=== PATIENT | male | born 1955 ===

== ENCOUNTER 2019-07-26 17:34 | Observation (INO) | payer OTHER, SELFPAY ==
[2019-07-25 10:30] LABS: Basophils % 0.4 %; Eosinophils # 0.4 10^3/uL (0.0-0.8); Eosinophils % 5.8 %; Hematocrit 42.7 % (42.0-52.0); Hemoglobin 14.5 g/dL (11.7-16.6); Lymphocytes # 1.8 10^3/uL (0.8-4.8); Lymphocytes % 25.8 %; Mean Corpuscular Hemoglobin 31.3 pg (28.0-34.0); Mean Platelet Volume 11.9 fL (7.4-10.4); Monocytes # 0.6 10^3/uL (0.2-0.9); Monocytes % 9.2 %; Neutrophils % 58.7 %; Nucleated Red Blood Cells % 0 %; Platelet Count 232 10^3/cmm (130-400); Red Blood Count 4.64 10^6/uL (4.1-5.3); Red Cell Distribution Width 12.5 % (12.1-15.1); White Blood Count 6.9 10^3/uL (4.0-10.0)
[2019-07-25 10:37] LABS: INR 0.92 (0.8-1.2)
[2019-07-25 10:45] LABS: Blood Urea Nitrogen 17 mg/dL (8-23); Calcium 9.9 mg/Dl (8.8-10.2); Carbon Dioxide 26 mmol/L (22-29); Chloride 97 mmol/L (98-107); Glomerular Filtration Rate 56.1 mL/min (90-130); Glucose 191 mg/dL (74-106); Osmolality Calculated 282 mOsm/kg (285-295); Sodium 135 mmol/L (136-145)
--- NOTE | 2019-07-26 07:30 | XACV_ITS ---
Ht: 178 cm Wt: 113 kg BSA: 2.41 m2 Gender: Male : 1955 Any Known Allergies: No known allergies Exam Priority: Routine Procedure(s): Procedure Description: Diagnostic procedure Procedure Description: Left Heart Catheterization Procedure Description: Coronary Angiography Diagnostic Cath Status: Elective Diagnostic Findings No significant disease noted in the Left Main, LAD, Circumflex, or RCA coronary arteries. Coronary angiography shows left dominance. PCI Indication: Other Conclusions No significant disease noted in the Left Main, LAD, Circumflex, or RCA coronary arteries. Indication: Abnormal stress test with chest pain. Recommendations Continue current medical management and risk factor modification. Diagnostic RX Recommendation: none Pressures Phase:Rest AO : 75 mmHg / 58 mmHg ( 67 mmHg ) @ 10:59:00 AM 64 mmHg / 49 mmHg ( 56 mmHg ) @ 10:59:00 AM 69 mmHg / 55 mmHg ( 63 mmHg ) @ 11:07:00 AM Clinical Evaluation EBL: 5mL-10mL Procedural Details Correct Patient: Yes; Correct Procedure: Yes; Correct Site: Yes; Correct Patient Position: Yes; Correct Supplies: Yes; Dried Flammable Prep: N/A; Blood Products Available: N/A;. Procedure Consent Obtained. Equipment: 6F - Radial. Cardiac Cath Pack. ACIST Manifold Kit Model BT 2000. Heparinized Saline (2 units/mL), 1000 mL bag. Pre-Procedure Time Out. Identified patient by full name and date of as verbalized by the patient/guarantor. Does the consent match the physician's order: Yes. Accurate & Complete Informed Consent: Yes. Inpatient/Outpatient History & Physical on Chart: Yes. If H&P is completed, is and addenduem needed: Yes; If yes, is the addendum complete: N/A. Visualize and Verify Site with Patient/Guarantor: N/A. Relevant Radiology Images available: N/A. Pre-op teaching completed and patient verbalized understanding. The risks, benefits, and alternatives of sedation and/or procedure were discussed by physician. The patient agrees to continue. Procedure started. Correct patient, site and procedure confirmed by cath team. PERRLA. Strong, equal hand nephrologist bilaterally. Lungs clear x 5 lobes. IV Site on Arrival: 20 gauge in the right anticubital. Pre Procedural Pulses: bilateral dorsalis pedis was 1+. Pre Procedural Pulses: bilateral posterior tibial was 1+. Pre Procedural Pulses: right radial was 2+. Oxygen started at 2liters/min via nasal canula. right radial was prepped with chloroprep then draped in the usual sterile fashion. Physician notified. Baseline sample Acquired. HR: 74 BPM. [facility] Clinical Fraility Score: 3: Managing Well. Social Professionals Indications: Suspected CAD. Chest Pain Symptom Assessment: Atypical Angina. Cardiovascular Instability: No. Current diagnosis: Stable angina. Physician arrived. Physician scrubbed in. Immediate Pre-Procedure Time Out. Lidocaine 1% infiltrated to the right groin. Current Diagnosis : Stable angina. Arterial access obtained. A 6 belarusian RBL catheter in over wire. Multiple views taken of left coronary artery. Catheter out. A CRD 5F JR4 Diagnostic Catheter was advanced over the wire and used for Right coronary angiography. Multiple views taken of right coronary artery. Physician scrubbed out. Physician review of cine films. A TR Band was successful obtaining hemostatsis at the Right Radial artery insertion site. TR band placed. Hemostasis obtained. Post Procedure: Pulses reassessed and unchanged. PERRLA. Strong, equal hand nephrologist bilaterally. No VTE prophylaxis required. Contrast type used: Visipaque 320 mgI/mL, 500 mL bottle. Post-op diagnosis: Normal Coronaries with endothelial disfunction. Complications: none. Estimated blood loss: 5mL-10mL. Procedure completed. Medication's Wasted: Lidocaine 1% =18mL , Nitro = 49.75mL, Heparin = 1000 units. Total IV fluids: 59.3 mL. Patient transferred by bed to 1st floor. Vital chart was stopped. Site: Right Radial artery Sheath Size: 6 Fr Hemostasis Method: TR Band Hemostasis Success: Successful Procedure Medications Start: 4:51 PM Stop: 4:51 PM Medication: Versed Amount: 2 mg Route: I.V. Start: 4:51 PM Stop: 4:51 PM Medication: Fentanyl Amount: 50 mcg Route: I.V. Start: 4:53 PM Stop: 4:53 PM Medication: Nitrogylcerin Amount: 50 mcg Start: 4:56 PM Stop: 4:56 PM Medication: Versed Amount: 2 mg Route: I.V. Start: 4:56 PM Stop: 4:56 PM Medication: Nitrogylcerin Amount: 200 mcg Route: I.A. Start: 4:58 PM Stop: 4:58 PM Medication: Heparin Amount: 5000 units Start: 5:05 PM Stop: 5:05 PM Medication: Fentanyl Amount: 25 mcg Route: I.V. Start: 5:08 PM Stop: 5:08 PM Medication: Versed Amount: 1 mg Route: I.V. Start: 4:56 PM Stop: 4:56 PM Medication: Fentanyl Amount: 25 mcg Route: I.V. I, the attending physician, have reviewed and verified all procedure medications. Yes, all medications given per verbal order History/Risk Factors Hypertension: Yes Dyslipidemia: Yes Peripheral Arterial Disease (PAD): No Myocardial Infarction (MT): No Obesity: Yes Renal Disease: No Tobacco Use: Former Prior Interventions PCI: No CABG: No Valve Surgery: No Report Signatures Finalized by:Tahira Chambers MD on 08/09/2019 5:47:01 PM
[2019-07-26 09:35] VITALS: BP 149/84; PULSE 80; RESP 18; TEMP 36.7; O2SAT 97; BMI 35.9
[2019-07-26] MEDS: sodium chloride 0.9% 1,000 ML 50 ML IV (10:07)
[2019-07-26] MEDS: diphenhydrAMINE 50 mg Capsule PO (10:07)
--- NOTE | 2019-07-26 17:32 | PM.SDS ---
Short Stay Summary Providers Date of Admit/Discharge: 07/26/19 Attending Provider: Tahira Chambers Primary Care Provider: Darvin Orozco MD Chief Complaint: Abnormal Nuclear Stress test HPI History of Present Illness Lam Almonte is a 63 year old male past medical history significant for chest pressure unexplained shortness of breath history of uncontrolled hypertension history of hypercholesterolemia for worsening of shortness of breath and abnormal stress test underwent left heart cath which showed no significant obstructive disease but endothelial dysfunction and sluggish flow through the LAD. Review of Systems Const: Denies: fever, chills or body aches Eyes: Denies: change in vision Card: Reports: chest pain Resp: Reports: shortness of breath GI: Denies: abdominal pain, nausea or vomiting Neuro: Denies: headache, numbness in extremities or weakness in extremities Endo: Denies: excessive urination Home Meds/Allergies Home Medications and Allergies Home Medications Medication Instructions Recorded Confirmed Type aspirin [Aspirin Low Dose] 81 mg PO DAILY 07/26/19 07/26/19 History atorvastatin 10 mg PO DAILY 07/26/19 07/26/19 History isosorbide mononitrate 30 mg PO DAILY 07/26/19 07/26/19 History lisinopril 20 mg PO DAILY 07/26/19 07/26/19 History naproxen 500 mg PO PRN 07/26/19 07/26/19 History sildenafil 100 mg PO 07/26/19 History Allergies Allergy/AdvReac Type Severity Reaction Status Date / Time No Known Allergies Allergy Verified 07/25/19 13:12 PFSH Acute PFSH: Statuses (acute, chronic, etc) shown below reflect problem list status as previously entered and may not be historically accurate Medical History (Updated 07/26/19 @ 17:45 by Tahira Chambers MD) Abnormal nuclear stress test (Acute) HTN (hypertension) with goal to be determined (Acute) Shortness of breath (Acute) Family History Sister Cancer Social History Smoking and tobacco status: former smoker Vitals/I&O/Wt Last Vital Signs Temp 98.1 F 07/26/19 09:35 Pulse 80 07/26/19 09:35 Resp 18 07/26/19 09:35 BP 149/84 07/26/19 09:35 Pulse Ox 97 07/26/19 09:35 Weight last 48 hrs Weight 250 lb Physical Exam Narrative: EXAM NARRATIVE: GENERAL: Patient is alert, awake and oriented x3. NECK: No jugular vein distension. HEENT: No cyanosis. No icterus. No pallor. HEART: Regular S1 and S2. No murmur, rub or gallop. LUNGS: Clear to auscultate bilaterally. ABDOMEN: Soft, nontender and nondistended. Positive bowel sounds. No guarding, rebound or tenderness. CENTRAL NERVOUS SYSTEM: Grossly nonfocal. EXTREMITIES: Lower extremities without edema bilaterally. Hospital Course Admission Diagnoses: Shortness of breath Hypertension Hyperlipidemia Discharge Summary: Patient underwent coronary angiogram which showed no significant obstruction of the coronary artery. Patient was noted to have endothelial dysfunction. Advised lifestyle modification and isosorbide mononitrate. SSS Data Data Completed and Pending: Completed Studies During Hospitalization Category Date Time Status CONFERENCE SERVICES MANAGER request for service Routin e Exams 07/26/19 07:30 Completed Diagnoses at Discharge Discharge Diagnosis (1) Abnormal nuclear stress test: Status: Acute (2) Shortness of breath: Status: Acute (3) HTN (hypertension) with goal to be determined: Status: Acute Discharge Plan Discharge Patient Disposition: Home, Self-Care Condition: Stable Prescriptions: No Action atorvastatin 10 mg tablet 10 mg PO DAILY RF: 0 isosorbide mononitrate 30 mg tablet extended release 24 hr 30 mg PO DAILY RF: 0 Aspirin Low Dose 81 mg Tablet,Delayed Release (Dr/Ec) 81 mg PO DAILY RF: 0 sildenafil 100 mg tablet 100 mg PO RF: 0 lisinopril 10 mg tablet 20 mg PO DAILY RF: 0 naproxen 500 mg tablet 500 mg PO PRN RF: 0 Discharge Diet: Low Cholesterol Discharge Activity: Resume usual activity Activity Restrictions/Additional Instructions: No lifting with right hand for next 2 days otherwise no significant restriction. Advised not to take isosorbide mononitrate within 24 hours of taking sildenafil or vice versa because it can lower your blood pressure significantly and has been reported. Attestations Medical Necessity Statement*: Patient can be discharged home once complete bedrest. I am not expecting stay to cross more than a few hours after the test Time Spent in Patient Care*: greater than 30 min Quality Metrics Clinical Quality Measures: During this hospital stay, did patient experience: None Coding Level of Care Code Acute Senior Project Manager for Chg Fwd Diagnoses Abnormal nuclear stress test R94.39 Shortness of breath R06.02 HTN (hypertension) with goal to be determined I10
--- NOTE | 2019-07-26 20:21 | PC.NURSE ---
TB band removed from right wrist and dressing applied. Patient given post-cath activity restrictions and care education and verbalized understanding. Site WNL. VSS. Will continue to monitor.
[2019-07-26 20:25] VITALS: RESP 18; TEMP 36.7; O2SAT 97
--- NOTE | 2019-07-26 20:54 | PC.NURSE ---
Patient was given discharge instructions and verbalized understanding. Patient signed discharge.
== END 2019-07-26 21:00 | disposition home or self-care (01) ==
LOC: CSU 17:34
PROVIDERS: Admitting Provider Internal Medicine Cardiovascular Disease; Family Provider Internal Medicine; PCP Internal Medicine; Visit Provider Internal Medicine Cardiovascular Disease
DX: R94.39 Abnormal result of other cardiovascular function study (principal); R06.02 Shortness of breath; I10 Essential (primary) hypertension; Z79.82 Long term (current) use of aspirin; Z79.1 Long term (current) use of non-steroidal anti-inflammatories (NSAID); Z87.891 Personal history of nicotine dependence; E78.5 Hyperlipidemia, unspecified
CPT/HCPCS: 12345; 36415; 80048; 85025; 85610; 93454; 96365; C1769; C1887; C1894; G0378; J1644; J2001; J2250; J3010; J3490; J7030; Q9967

== ENCOUNTER → 2020-07-08 16:49 | Outpatient (BNVA) | payer OTHER, SELFPAY | PROVIDERS: Family Provider Internal Medicine; PCP Internal Medicine; Visit Provider Internal Medicine | DX: M19.09 Primary osteoarthritis, other specified site (principal); I10 Essential (primary) hypertension; E78.5 Hyperlipidemia, unspecified | CPT/HCPCS: 80053; 80061; 84443; 85025 ==

== ENCOUNTER → 2021-07-14 15:18 | Outpatient (BNVA) | payer OTHER, SELFPAY | PROVIDERS: Family Provider Internal Medicine; PCP Internal Medicine; Visit Provider Internal Medicine | DX: E78.5 Hyperlipidemia, unspecified (principal); M19.09 Primary osteoarthritis, other specified site; I10 Essential (primary) hypertension | CPT/HCPCS: 80053; 80061; 84443 ==